=== PATIENT | female | born 1930 | race Asian ===

== ENCOUNTER 2017-07-14 08:07 | Emergency (ER) | payer MEDICAID ==
[~2017-07-14] VITALS: Ht 157.5 cm; Wt 70.5 kg
[2017-07-14 08:51] LABS: BASO % 0.5 % (0.0-2.0); EOS # 0.4 (0.0-0.7); EOS % 6.4 % (0-4.0); GRAN # 3.7 (1.4-6.5); GRAN % 56.5 % (42.2-75.2); HEMATOCRIT 39.2 % (37.0-47.0); LYMPH # 1.9 (1.2-3.4); LYMPH % 28.8 % (20.0-51.0); MEAN CELL VOLUME 103 fl (80.0-100.0); MEAN CORPUSCULAR HEMOGLOBIN 34 pg (27.0-31.0); MEAN CORPUSCULAR HGB CONC 33 g/dl (33.0-37.0); MEAN PLATELET VOLUME 10.3 fl (7.4-10.4); MONO # 0.5 (0.1-0.6); MONO % 7.6 % (1.7-9.3); PLATELET COUNT 161 K/mm3 (130-400); RED BLOOD COUNT 3.79 M/mm3 (4.10-5.30); REDCELL DISTRIBUTION WIDTH-CV 14.6 % (11.5-14.5)
[2017-07-14] MEDS ORDERED: NEURONTIN300 MG/CAP PO (08:52)
[2017-07-14] MEDS ORDERED: SYNTHROID0.112 MG/T PO (08:53)
[2017-07-14] MEDS ORDERED: ENBREL50 MG/ML SQ (08:55)
[2017-07-14 09:00] LABS: PROTHROMBIN TIME 11.2 SECONDS (9.7-12.8)
[2017-07-14] MEDS ORDERED: PRINIVIL5 MG PO (09:00)
[2017-07-14] MEDS ORDERED: FOLIC ACID 11 MG/TA1 PO (09:01)
[2017-07-14] MEDS ORDERED: ZOVIRAX800 MG PO (09:02)
[2017-07-14 09:03] LABS: PARTIAL THROMBOPLASTIN TIME 27.8 SECONDS (26.0-37.0)
[2017-07-14] MEDS ORDERED: ZOCOR 20MG20 MG PO (09:03)
[2017-07-14] MEDS ORDERED: GLUCOPHAGE XR750 MG PO (09:04)
[2017-07-14] MEDS ORDERED: PRILOSEC 20MG20 MG PO (09:05)
[2017-07-14] MEDS ORDERED: PREDNISONE 2.52.5 MG PO (09:07)
[2017-07-14 09:10] LABS: ALANINE AMINOTRANSFERASE 35 U/L (9-52); ALBUMIN 3.8 gm/dL (3.5-5.0); ALKALINE PHOSPHATASE 104 U/L (50-136); ANION GAP 11 mmol/L (7-16); AST,SGOT 26 U/L (15-37); BILIRUBIN,TOTAL 0.5 mg/dL (0.0-1.0); BLOOD UREA NITROGEN 20 mg/dL (7-17); CALCIUM 9.4 mg/dL (8.4-10.2); CARBON DIOXIDE 26 mmol/L (22-30); CHLORIDE 103 mmol/L (98-107); CREATININE, serum 0.91 mg/dL (0.52-1.25); GLUCOSE 165 mg/dL (74-106); POTASSIUM 4.1 mmol/L (3.4-5.0); SODIUM 140 mmol/L (137-145); TOTAL PROTEIN 7.2 gm/dL (6.4-8.2)
[2017-07-14] MEDS ORDERED: METHOTREXA2.5 MG/TAB PO (09:10)
[2017-07-14] MEDS ORDERED: AMARYL1 MG PO (09:10)
[2017-07-14] MEDS ORDERED: TYLENOL W/COD1 UDTAB PO (09:11)
[2017-07-14 09:12] LABS: ERYTHROCYTE SEDIMENTATION RATE 52 mm/hr (0-30)
[2017-07-14] MEDS ORDERED: ASPIRIN E.C. 8181 MG PO (09:12)
[2017-07-14 09:13] LABS: C-REACTIVE PROTEIN < 0.5 mg/dL (0.0-0.9)
[2017-07-14 09:22] LABS: TROPONIN-I < 0.012 ng/mL (0.000-0.034)
[2017-07-14 14:05] VITALS: BP 119/83; PULSE 86; TEMP 97.6
== END 2017-07-14 14:20 | disposition short-term general hospital (02) ==
LOC: COL.ER 08:07
PROVIDERS: Emergency Medicine
DX: I63.8 Other cerebral infarction (principal); I10 Essential (primary) hypertension; Z79.82 Long term (current) use of aspirin; Z79.84 Long term (current) use of oral hypoglycemic drugs
CPT/HCPCS: A9585; J1720; J2270; J2405

== ENCOUNTER → 2018-01-12 | Outpatient (CLI) | payer MEDICAID ==
[~2018-01-12] MED LIST: AMARYL1 MG PO; ASPIRIN E.C. 8181 MG PO; ENBREL50 MG/ML SQ; FOLIC ACID 11 MG/TA1 PO; GLUCOPHAGE XR750 MG PO; METHOTREXA2.5 MG/TAB PO; NEURONTIN300 MG/CAP PO; PREDNISONE 2.52.5 MG PO; PRILOSEC 20MG20 MG PO; PRINIVIL5 MG PO; SYNTHROID0.112 MG/T PO; TYLENOL W/COD1 UDTAB PO; ZOCOR 20MG20 MG PO; ZOVIRAX800 MG PO
== END ==
LOC: COL.RAD 08:15
DX: D69.6 Thrombocytopenia, unspecified (principal); K66.8 Other specified disorders of peritoneum; Z87.39 Personal history of other diseases of the musculoskeletal system and connective tissue

== ENCOUNTER → 2018-01-12 | Outpatient (CLI) | payer MEDICAID ==
[2018-01-12 12:35] LABS: BASO % 0.3 % (0.0-2.0); EOS # 0.5 (0.0-0.7); EOS % 7.2 % (0-4.0); GRAN # 3.9 (1.4-6.5); GRAN % 58.6 % (42.2-75.2); HEMATOCRIT 39.6 % (37.0-47.0); HEMOGLOBIN 13.1 g/dl (12.5-16.0); LYMPH # 1.8 (1.2-3.4); LYMPH % 27.5 % (20.0-51.0); MEAN CELL VOLUME 106 fl (80.0-100.0); MEAN CORPUSCULAR HEMOGLOBIN 35 pg (27.0-31.0); MEAN CORPUSCULAR HGB CONC 33 g/dl (33.0-37.0); MEAN PLATELET VOLUME 10.3 fl (7.4-10.4); MONO # 0.4 (0.1-0.6); MONO % 6.1 % (1.7-9.3); PLATELET COUNT 178 K/mm3 (130-400); RED BLOOD COUNT 3.74 M/mm3 (4.10-5.30); REDCELL DISTRIBUTION WIDTH-CV 13.8 % (11.5-14.5)
== END ==
LOC: COL.LAB 12:07
PROVIDERS: Internal Medicine
DX: D69.6 Thrombocytopenia, unspecified (principal)

== ENCOUNTER → 2018-01-26 | Outpatient (CLI) | payer MEDICAID | LOC: COL.RAD 10:45 | DX: N28.1 Cyst of kidney, acquired (principal); K44.9 Diaphragmatic hernia without obstruction or gangrene; D69.6 Thrombocytopenia, unspecified | CPT/HCPCS: Q9967 ==

== ENCOUNTER → 2018-03-02 | Outpatient (CLI) | payer MEDICAID ==
[~2018-03-02] MED LIST changes: +JANUVIA50 MG PO; +LIPITOR 40MG TA40 MG PO; +LYRICA 50MG CAP50 MG PO; +NORCO 325 MG-7.1 TAB PO; +NORVASC 5MG5 MG/TAB PO; +PLAVIX 75MG TAB75 MG PO; -PREDNISONE 2.52.5 MG PO; +PREDNISONE 5MG5 MG PO; +PRIL40 PO
[2018-03-02 15:27] LABS: HEMATOCRIT 39.6 % (37.0-47.0); HEMOGLOBIN 13.4 g/dl (12.5-16.0); MEAN CELL VOLUME 100 fl (80.0-100.0); MEAN CORPUSCULAR HEMOGLOBIN 34 pg (27.0-31.0); MEAN CORPUSCULAR HGB CONC 34 g/dl (33.0-37.0); MEAN PLATELET VOLUME 10.7 fl (7.4-10.4); PLATELET COUNT 187 K/mm3 (130-400); RED BLOOD COUNT 3.96 M/mm3 (4.10-5.30); REDCELL DISTRIBUTION WIDTH-CV 14.1 % (11.5-14.5)
[2018-03-02 15:31] LABS: ALBUMIN 3.4 gm/dL (3.5-5.0); BILIRUBIN,TOTAL 1.6 mg/dL (0.0-1.0); CREATININE, serum 0.84 mg/dL (0.52-1.25); TOTAL PROTEIN 6.9 gm/dL (6.4-8.2)
[2018-03-02 15:47] LABS: POTASSIUM 2.9 mmol/L (3.4-5.0)
== END ==
LOC: COL.LAB 13:32
PROVIDERS: Emergency Medicine
DX: E11.65 Type 2 diabetes mellitus with hyperglycemia (principal); F32.9 Major depressive disorder, single episode, unspecified; F02.80 Dementia in other diseases classified elsewhere, unspecified severity, without behavioral disturbance, psychotic disturbance, mood disturbance, and anxiety; I10 Essential (primary) hypertension; K21.9 Gastro-esophageal reflux disease without esophagitis; H40.2290 Chronic angle-closure glaucoma, unspecified eye, stage unspecified; M06.9 Rheumatoid arthritis, unspecified; J84.10 Pulmonary fibrosis, unspecified

== ENCOUNTER → 2018-03-08 | Outpatient (CLI) | payer MEDICAID ==
[2018-03-08 08:17] LABS: ARTERIAL BLD GAS O2 SATURATION 95.1 % (92-100); ARTERIAL BLD GAS TCO2 CT 27.8; ARTERIAL BLOOD GAS BASE EXCESS 3.2 (-2-2); ARTERIAL BLOOD GAS HCO3 26.6 meq/L (22-26); ARTERIAL BLOOD GAS PCO2 36.6 mmHg (35-45); ARTERIAL BLOOD GAS pH 7.48 (7.35-7.45)
== END ==
LOC: COL.PUL 07:45
PROVIDERS: Emergency Medicine
DX: K21.9 Gastro-esophageal reflux disease without esophagitis (principal); F02.80 Dementia in other diseases classified elsewhere, unspecified severity, without behavioral disturbance, psychotic disturbance, mood disturbance, and anxiety; F32.9 Major depressive disorder, single episode, unspecified; I10 Essential (primary) hypertension; H40.2290 Chronic angle-closure glaucoma, unspecified eye, stage unspecified; M06.9 Rheumatoid arthritis, unspecified; E11.65 Type 2 diabetes mellitus with hyperglycemia; J84.10 Pulmonary fibrosis, unspecified; J84.9 Interstitial pulmonary disease, unspecified

== ENCOUNTER → 2018-03-21 | Emergency (ER) | payer MEDICAID ==
[~2018-03-21] VITALS: Ht 157.5 cm; Wt 66.8 kg
[~2018-03-21] MED LIST changes: +VICODIN 5/300 PO
[2018-03-21 09:45] VITALS: BP 175/118; PULSE 98; TEMP 98.3
[2018-03-21 10:48] LABS: BASO % 0.3 % (0.0-2.0); EOS # 0.3 (0.0-0.7); EOS % 3.2 % (0-4.0); GRAN # 6.6 (1.4-6.5); HEMOGLOBIN 11.7 g/dl (12.5-16.0); LYMPH # 1.3 (1.2-3.4); MEAN CELL VOLUME 103 fl (80.0-100.0); MEAN CORPUSCULAR HEMOGLOBIN 35 pg (27.0-31.0); MEAN CORPUSCULAR HGB CONC 34 g/dl (33.0-37.0); MEAN PLATELET VOLUME 9.8 fl (7.4-10.4); MONO # 0.7 (0.1-0.6); MONO % 8.2 % (1.7-9.3); PLATELET COUNT 136 K/mm3 (130-400); RED BLOOD COUNT 3.39 M/mm3 (4.10-5.30); REDCELL DISTRIBUTION WIDTH-CV 15.9 % (11.5-14.5)
[2018-03-21 10:53] LABS: HEMATOCRIT 34.9 % (37.0-47.0)
[2018-03-21 11:02] LABS: ALBUMIN 3.1 gm/dL (3.5-5.0); BILIRUBIN,TOTAL 0.6 mg/dL (0.0-1.0); CALCIUM 8.9 mg/dL (8.4-10.2); CREATININE, serum 0.78 mg/dL (0.52-1.25); POTASSIUM 3.9 mmol/L (3.4-5.0); TOTAL PROTEIN 6.3 gm/dL (6.4-8.2)
== END ==
LOC: COL.ER 09:38
PROVIDERS: Family Medicine
DX: S22.31XA Fracture of one rib, right side, initial encounter for closed fracture (principal); Z79.82 Long term (current) use of aspirin; Z79.02 Long term (current) use of antithrombotics/antiplatelets; W18.39XA Other fall on same level, initial encounter

== ENCOUNTER 2018-05-22 09:53 | Emergency (ER) | payer MEDICAID ==
[~2018-05-22] VITALS: Ht 157.5 cm; Wt 54.5 kg
[2018-05-22 09:59] VITALS: TEMP 97.6
[2018-05-22 10:18] LABS: BASO % 0.5 % (0.0-2.0); EOS # 0.3 (0.0-0.7); EOS % 4.8 % (0-4.0); GRAN # 3.4 (1.4-6.5); HEMATOCRIT 42.2 % (37.0-47.0); HEMOGLOBIN 14.2 g/dl (12.5-16.0); LYMPH # 1.6 (1.2-3.4); LYMPH % 25.9 % (20.0-51.0); MEAN CELL VOLUME 100 fl (80.0-100.0); MEAN CORPUSCULAR HEMOGLOBIN 34 pg (27.0-31.0); MEAN CORPUSCULAR HGB CONC 34 g/dl (33.0-37.0); MEAN PLATELET VOLUME 10.4 fl (7.4-10.4); MONO # 0.8 (0.1-0.6); MONO % 12.5 % (1.7-9.3); PLATELET COUNT 164 K/mm3 (130-400); RED BLOOD COUNT 4.23 M/mm3 (4.10-5.30); REDCELL DISTRIBUTION WIDTH-CV 16.1 % (11.5-14.5)
[2018-05-22 10:32] LABS: ALBUMIN 3.8 gm/dL (3.5-5.0); BILIRUBIN,TOTAL 1.2 mg/dL (0.0-1.0); C-REACTIVE PROTEIN 1.3 mg/dL (0.0-0.9); CALCIUM 9.4 mg/dL (8.4-10.2); CREATININE, serum 0.66 mg/dL (0.52-1.25); POTASSIUM 3.3 mmol/L (3.4-5.0); TOTAL PROTEIN 7.3 gm/dL (6.4-8.2)
[2018-05-22 10:54] LABS: COLLECTION METHOD CLEAN CATCH
[2018-05-22 11:05] LABS: MUCOUS Present /lpf; PH 6 (5-8); SQUAMOUS EPITHELIAL 0-2 /hpf; URINE APPEARANCE Clear; URINE BACTERIA None Seen /hpf; URINE BILIRUBIN Negative (NEGATIVE); URINE BLOOD Negative (NEGATIVE); URINE COLOR Yellow; URINE GLUCOSE 1+ (NEGATIVE); URINE KETONE Trace (NEGATIVE); URINE LEUKOCYTE ESTERASE Negative (NEGATIVE); URINE NITRATE Negative (NEGATIVE); URINE PROTEIN(semi-quant) 1+ (NEGATIVE); URINE RBC 0-2 /hpf; URINE UROBILINOGEN >=4.0 mg/dL (NEGATIVE)
[2018-05-22] MEDS ORDERED: ZOFRAN ODT4 MG PO (14:06)
[2018-05-22 14:37] VITALS: BP 144/94; PULSE 75
== END 2018-05-22 14:42 | disposition home or self-care (01) ==
LOC: COL.ER 09:53
PROVIDERS: Family Medicine
DX: E86.0 Dehydration (principal); F32.9 Major depressive disorder, single episode, unspecified; R11.0 Nausea; R42 Dizziness and giddiness; I10 Essential (primary) hypertension; Z86.59 Personal history of other mental and behavioral disorders; Z79.84 Long term (current) use of oral hypoglycemic drugs; Z79.82 Long term (current) use of aspirin; Z79.52 Long term (current) use of systemic steroids; Z79.02 Long term (current) use of antithrombotics/antiplatelets
CPT/HCPCS: J2405; J7030

== ENCOUNTER → 2018-10-22 | Outpatient (CLI) | payer MEDICAID ==
[~2018-10-22] MED LIST changes: +ZOFRAN ODT4 MG PO
== END ==
LOC: COL.RAD 10:00
DX: I71.4 Abdominal aortic aneurysm, without rupture (principal)

== ENCOUNTER → 2019-02-18 | Outpatient (CLI) | payer MEDICAID ==
[~2019-02-18] MED LIST changes: +CYMBALTA 30MG30 MG PO; +KLOR-CON SPRIN10 MEQ PO; +LEVOXYL0.1 MG PO
== END ==
LOC: COL.VAS 07:58
DX: I07.1 Rheumatic tricuspid insufficiency (principal)